=== PATIENT | male | born 1955 | race Caucasian/White ===

== ENCOUNTER 2017-02-17 14:53 | Outpatient (CLI) | payer MEDICARE | END 2017-02-17 23:59 | DX: N18.3 Chronic kidney disease, stage 3 (moderate) (principal); I10 Essential (primary) hypertension; E78.5 Hyperlipidemia, unspecified; E11.9 Type 2 diabetes mellitus without complications ==

== ENCOUNTER 2017-03-16 08:00 | Outpatient (CLI) | payer MEDICARE ==
[2017-03-16 18:57] LABS: BASOPHILS % (AUTO) 0.8 %; EOSINOPHILS # (AUTO) 0.1 10^3/uL (0.0-0.7); HCT - HEMATOCRIT 27.5 % (42.0-52.0); HGB - HEMOGLOBIN 8.9 g/dL (14.0-18.0); IMMATURE RETIC FRACTION 0.47; LYMPHOCYTES # (AUTO) 0.5 10^3/uL (1.5-3.5); LYMPHOCYTES % (AUTO) 13.1 %; MEAN CORPUSCULAR HEMOGLOBIN 29.5 pg (27.0-31.0); MEAN CORPUSCULAR HGB CONC 32.4 g/dL (32.0-36.0); MEAN CORPUSCULAR VOLUME 90.9 fL (80.0-94.0); MEAN PLATELET VOLUME 7.7 fL (7.4-11.4); MONOCYTES # (AUTO) 0.3 10^3/uL (0.0-1.0); MONOCYTES % (AUTO) 7.6 %; NEUTROPHILS # (AUTO) 3.2 10^3/uL (1.5-6.6); NEUTROPHILS % (AUTO) 76.5 %; NUCLEATED RED BLOOD CELLS AUTO 0.1 /100WBC; RED BLOOD COUNT 3.02 10^6/uL (4.70-6.10); RED CELL DISTRIBUTION WIDTH 13.9 % (12.0-15.0); UNCORRECTED WHITE BLOOD COUNT 4.2 x10^3/uL; WHITE BLOOD COUNT 4.2 x10^3/uL (4.8-10.8)
[2017-03-16 19:07] LABS: BILIRUBIN,TOTAL 0.5 mg/dL (0.2-1.0); CREATININE 5.7 mg/dL (0.6-1.2); POTASSIUM 5.3 mmol/L (3.5-5.0); TOTAL PROTEIN 6.9 g/dL (6.7-8.2)
[2017-03-16 19:15] LABS: HEMOGLOBIN A1C 0.31 g/dL
== END 2017-03-16 08:01 | disposition home or self-care (01) ==
LOC: LAB.N 08:00
PROVIDERS: ATTEND Family Medicine
DX: E11.22 Type 2 diabetes mellitus with diabetic chronic kidney disease (principal); N18.6 End stage renal disease; I12.0 Hypertensive chronic kidney disease with stage 5 chronic kidney disease or end stage renal disease; Z99.2 Dependence on renal dialysis
CPT/HCPCS: 36415; 80053; 83036; 85025; 85044; 93005

== ENCOUNTER 2017-03-16 13:30 | Outpatient (CLI) | payer MEDICARE | END 2017-03-16 13:45 | disposition home or self-care (01) | DX: I12.9 Hypertensive chronic kidney disease with stage 1 through stage 4 chronic kidney disease, or unspecified chronic kidney disease (principal); N18.6 End stage renal disease ==

== ENCOUNTER 2017-04-06 09:15 | Outpatient (CLI) | payer MEDICARE | END 2017-04-06 09:30 | disposition home or self-care (01) | LOC: RT.N 09:15 | PROVIDERS: ATTEND Family Medicine | DX: Z01.810 Encounter for preprocedural cardiovascular examination (principal); R94.31 Abnormal electrocardiogram [ECG] [EKG] | CPT/HCPCS: 93005 ==

== ENCOUNTER 2017-04-12 08:26 | Outpatient (CLI) | payer MEDICARE | END 2017-04-12 08:27 | disposition home or self-care (01) | LOC: EMS 08:26 | PROVIDERS: ATTEND Surgery | DX: R53.1 Weakness (principal) | CPT/HCPCS: A0425; A0429 ==

== ENCOUNTER 2017-04-12 08:46 | Emergency (ER) | payer MEDICARE ==
--- NOTE | 2017-04-12 09:12 | ED Physician Documentation ---
PD HPI FOCAL NEURO - Stated complaint Stated Complaint: POSS STROKE - Chief complaint Chief Complaint: Neuro - History obtained from History obtained from: Patient, Family (parents), EMS - History of Present Illness Timing - onset: How many hours ago (11), Last night Timing - details: Other (Improving since onset last night.) Severity of deficit: Moderate Weakness: Face, Arm, Leg, Left Associated symptoms: No: Headache, Nausea / vomiting, Fall, Head injury, Chest pain, Fever Baseline status: positive: A&OX3, ambulatory, indep Similar symptoms before: Diagnosis (History of TIA in 2007, with transient left sided weakness.) - Additional information Additional information: The patient is a 62-year-old male with history of renal failure, on dialysis, and history of TIA with left-sided weakness in 2007, who presents via ambulance with acute left-sided weakness that was first noticed last night, about 11 hours prior to arrival. At that time the patient was unable to walk because of weakness in his left leg. He also reports inability to raise his left arm at that time. This morning he told his parents, and they advised him to call 911. He feels better this morning, with ability to bear weight on his left leg. He denies headache, fever, nausea or vomiting. He is scheduled for dialysis today. Review of Systems Constitutional: denies: Fever Eyes: denies: Decreased vision Ears: denies: Tinnitus/ringing Nose: denies: Congestion Throat: denies: Sore throat Cardiac: denies: Chest pain / pressure, Palpitations Respiratory: denies: Dyspnea, Cough GI: denies: Abdominal Pain, Nausea, Vomiting : denies: Dysuria Skin: denies: Rash Musculoskeletal: denies: Neck pain, Back pain, Extremity swelling Neurologic: reports: Focal weakness (left-sided weakness). denies: Numbness, Headache PD PAST MEDICAL HISTORY - Past Medical History Past Medical History: Yes Cardiovascular: Hypertension Neuro: TIA Endocrine/Autoimmune: Type 2 diabetes : Dialysis - Past Surgical History Past Surgical History: Yes Ortho: Hip replacement - Present Medications Home Medications: Ambulatory Orders Medication Instructions Recorded Confirmed Losartan [Cozaar] 1 tab PO DAILY 04/12/17 04/12/17 Metoprolol Succinate 1 tab PO DAILY 04/12/17 04/12/17 Rosuvastatin Calcium 1 tab PO DAILY 04/12/17 04/12/17 Terazosin HCl 1 cap PO DAILY 04/12/17 04/12/17 - Allergies Allergies/Adverse Reactions: Allergies Allergy/AdvReac Type Severity Reaction Status Date / Time lisinopril AdvReac Unknown Verified 04/12/17 08:55 bee stings AdvReac Unknown Edema Uncoded 04/12/17 08:55 - Living Situation Living Situation: reports: With family Living Arrangement: reports: At home - Social History Does the pt smoke?: Yes Smoking Status: Current every day smoker Does the pt drink ETOH?: No Does the pt have substance abuse?: No - Immunizations Immunizations are current?: Yes - POLST Patient has POLST: No PD ED PE NORMAL - Vitals Vital signs reviewed: Yes (hypertensive) - General General: Alert and oriented X 3, Well developed/nourished - HEENT HEENT: Atraumatic, PERRL, EOMI, Pharynx benign - Neck Neck: Supple, no meningeal sign, No adenopathy, No JVD - Cardiac Cardiac: RRR, No murmur - Respiratory Respiratory: No respiratory distress, Clear bilaterally - Abdomen Abdomen: Soft, Non tender - Back Back: No CVA TTP - Derm Derm: No rash - Extremities Extremities: No edema, No calf tenderness / cord - Neuro Neuro: Alert and oriented X 3, No sensory deficit, Normal speech, Other (Mild left facial droop. No focal motor or sensory deficit detected in the extremities.) NIHSS - Time Time: 08:55 - Level of Consciousness Level of consciousness: (0) Alert, Keenly responsive LOC Questions: (0) Answers both Q's correct LOC Commands: (0) Performs both correctly - Gaze Best Gaze: (0) Normal - Visual Visual: (0) No loss - Facial Palsy Facial Palsy: (1) Minor paralysis - Motor Arms (both separate) Motor Arm (right): (0) No drift Motor Arm (left): (0) No drift - Motor Legs (both separate) Motor Leg (right): (0) No drift Motor Leg (left): (0) No drift - Limb Ataxia Limb Ataxia: (0) Absent - Sensory Sensory: (0) Normal - Best Language Best Language: (0) No aphasia - Dysarthria Dysarthria: (0) Normal - Extinction and Inattention (formally neg Extinction and inattention: (0) No abnormality - Total Score/Results Total Score/Result: 1 Results - Vitals Vitals: Vital Signs - 24 hr 04/12/17 04/12/17 04/12/17 12:28 12:38 14:04 Heart Rate 53 L 60 51 L Respiratory 14 15 12 Rate Blood Pressure 168/85 H 179/96 H 181/83 H O2 Saturation 99 99 97 04/12/17 15:25 Heart Rate 54 L Respiratory 14 Rate Blood Pressure 173/84 H O2 Saturation 98 Oxygen O2 Source Room air - EKG (time done) 08:55 Rate: Rate (enter#) (60) Rhythm: NSR [place]: Normal Intervals: Prolonged DC QRS: Normal Ischemia: T wave inversion (T wave inversions in lateral leads, I, aVL, and V3- V6, unchanged from previous EKG of 03/16/2017.) Compare to prior EKG: Unchanged from prior EKG Computer interpretation: Agree with computer - Labs Labs: Laboratory Tests 04/12/17 04/12/17 09:14 09:14 WBC 6.4 RBC 3.28 L Hgb 9.9 L Hct 29.8 L MCV 91.1 MCH 30.2 MCHC 33.2 RDW 14.7 Plt Count 117 L MPV 6.9 L Neut # 4.7 Lymph # 0.9 L [place] # 0.5 Eos # 0.2 Baso # 0.0 Absolute Nucleated RBC 0.00 Nucleated RBCs 0.0 Sodium 140 Potassium 6.3 H* Chloride 108 Carbon Dioxide 20 L Anion Gap 12.0 BUN 93 H* Creatinine 9.1 H* Estimated GFR (MDRD) 6 L Glucose 109 H Calcium 9.1 Total Bilirubin 0.5 AST 14 ALT 14 Alkaline Phosphatase 64 Total Protein 6.9 Albumin 3.7 Globulin 3.2 Albumin/Globulin Ratio 1.2 Lipase 91 H - Rads (name of study) CT head Radiology: Prelim report reviewed, EMP read contemporaneously, See rad report ( No CT evidence of acute intracranial abnormality, specifically no CT evidence of acute infarct, intracranial hemorrhage, mass effect, midline shift, or hydrocephalus. Acute infarct is not excluded by CT. Scattered periventricular and deep white matter hypodensities within the cerebral hemispheres bilaterally , likely representing sequelae of chronic microangiopathy.) PD MEDICAL DECISION MAKING - ED course Complexity details: reviewed old records, reviewed results, re-evaluated patient , considered differential, d/w patient, d/w family, d/w resourcing consultant ED course: The patient's presentation is significant for left-sided neurologic deficit consistent with stroke versus TIA. The time of arrival is 11 hours since the onset of his symptoms, and they are dramatically improved since initial onset. Head CT does not reveal any acute abnormality. In addition the patient has a history of dialysis and is scheduled for dialysis today. His potassium is significantly elevated at 6.3, with a creatinine of 9.1, which is higher than it has been in the past on review of previous lab studies. Treatment in the emergency included administration of 4 baby aspirin orally, calcium gluconate IV, one amp sodium bicarbonate IV, 10 units regular insulin, and 1 amp of D50W IV. I discussed his condition with Dr. Dominguez, his elevated work platform operator at [facility]. He would accept the patient in transfer but [facility] is on diversion. I discussed his condition with Dr. Miner, the hospitalist at [facility], as well as Dr. Slaughter, the elevated work platform operator at [facility]. They will accept the patient in transfer. He is being transferred by ALS ambulance. Transfer forms were completed. Departure - Departure Disposition: 02 Transfer Acute Care Hosp Clinical Impression: Hyperkalemia, Renal dialysis status Cerebrovascular accident (CVA) Qualifiers: CVA mechanism: unspecified Qualified Code(s): I63.9 - Cerebral infarction, unspecified Condition: Serious Discharge Date/Time: 04/12/17 15:41
[2017-04-12 09:38] LABS: BASOPHILS % (AUTO) 0.4 %; EOSINOPHILS # (AUTO) 0.2 10^3/uL (0.0-0.7); EOSINOPHILS % (AUTO) 3.5 %; HCT - HEMATOCRIT 29.8 % (42.0-52.0); HGB - HEMOGLOBIN 9.9 g/dL (14.0-18.0); LYMPHOCYTES # (AUTO) 0.9 10^3/uL (1.5-3.5); LYMPHOCYTES % (AUTO) 14.3 %; MEAN CORPUSCULAR HEMOGLOBIN 30.2 pg (27.0-31.0); MEAN CORPUSCULAR HGB CONC 33.2 g/dL (32.0-36.0); MEAN CORPUSCULAR VOLUME 91.1 fL (80.0-94.0); MEAN PLATELET VOLUME 6.9 fL (7.4-11.4); MONOCYTES # (AUTO) 0.5 10^3/uL (0.0-1.0); MONOCYTES % (AUTO) 8.1 %; NEUTROPHILS # (AUTO) 4.7 10^3/uL (1.5-6.6); NEUTROPHILS % (AUTO) 73.7 %; RED BLOOD COUNT 3.28 10^6/uL (4.70-6.10); RED CELL DISTRIBUTION WIDTH 14.7 % (12.0-15.0); UNCORRECTED WHITE BLOOD COUNT 6.4 x10^3/uL; WHITE BLOOD COUNT 6.4 x10^3/uL (4.8-10.8)
[2017-04-12 10:05] LABS: ALBUMIN/GLOBULIN RATIO 1.2 (1.0-2.2); BILIRUBIN,TOTAL 0.5 mg/dL (0.2-1.0); CALCIUM 9.1 mg/dL (8.5-10.3); TOTAL PROTEIN 6.9 g/dL (6.7-8.2)
[2017-04-12 10:06] LABS: POTASSIUM 6.3 mmol/L (3.5-5.0)
[2017-04-12 10:07] LABS: CREATININE 9.1 mg/dL (0.6-1.2)
--- NOTE | 2017-04-12 10:29 | CT Report ---
EXAM: CT HEAD EXAM DATE: 04/12/2017 09:48 AM. CLINICAL HISTORY: Left sided weakness. COMPARISON: MRI brain 07/26/2008 TECHNIQUE: Multiaxial CT images were obtained from the foramen magnum to the vertex. IV contrast: Non e. Reformats: Coronal. In accordance with CT protocol optimization, one or more of the following dose reduction techniques w ere utilized for this exam: automated exposure control, adjustment of mA and/or KV based on patient s ize, or use of iterative reconstructive technique. FINDINGS: Parenchyma: No intraparenchymal hemorrhage. No evidence of mass, midline shift, or CT findings of inf arction. Scattered periventricular and deep white matter hypodensities within the cerebral hemisphere s bilaterally, likely representing sequela of chronic microangiopathy. Rubio-white differentiation is otherwise distinct. Extraaxial Spaces: Normal for age. No subdural or epidural collections identified. Ventricles: Normal in size and position. Sinuses: Imaged paranasal sinuses, orbits, and mastoids show no significant abnormality. Bones: No evidence of fracture or calvarial defect. Other: None. Extensive atherosclerosis intracranial arteries. IMPRESSION: 1. No CT evidence of acute intracranial abnormality, specifically no CT evidence of acute infarct, in tracranial hemorrhage, mass effect, midline shift, or hydrocephalus. Acute infarct is not excluded b y CT. 2. Scattered periventricular and deep white matter hypodensities within the cerebral hemispheres bila terally, likely representing sequela of chronic microangiopathy. [facility] Referring Provider Line: [phone] SITE ID: [id number]
[2017-04-12] MEDS ORDERED: CALCIUM GLUCONATE 1,000 MG in SODIUM CHLORIDE 0.9% 50 ML IV ONE (11:50)
[2017-04-12] MEDS ORDERED: SODIUM BICARBONATE ABBOJECT 4.2% 5 MEQ/10 ML SYRINGE IVP STA (11:52)
[2017-04-12] MEDS ORDERED: INSULIN REGULAR HUMAN 100 UNIT/1 ML 10 ML MDV IVP STA (11:54)
[2017-04-12] MEDS ORDERED: DEXTROSE 5% 1,000 ML IV SCH (12:00)
[2017-04-12] MEDS ORDERED: DEXTROSE 50% ABBOJECT 25 GM/50 ML SYRINGE IVP STA ×2 (12:15→14:58)
[2017-04-12] MEDS ORDERED: SODIUM BICARBONATE ABBOJECT 50 MEQ/50 ML SYRINGE ONE ×2 (12:42→12:44)
[2017-04-12] MEDS ORDERED: DEXTROSE 50% ABBOJECT 25 GM/50 ML SYRINGE ONE ×2 (12:42→14:59)
[2017-04-12] MEDS ORDERED: INSULIN REGULAR HUMAN 100 UNIT/1 ML 10 ML MDV ONE (12:44)
[2017-04-12 15:27] VITALS: BP 173/84
== END 2017-04-12 15:41 | disposition short-term general hospital (02) ==
LOC: EDUNIT# → ED 08:46
DX: I63.9 Cerebral infarction, unspecified (principal); G81.94 Hemiplegia, unspecified affecting left nondominant side; E11.22 Type 2 diabetes mellitus with diabetic chronic kidney disease; N18.6 End stage renal disease; Z99.2 Dependence on renal dialysis; I10 Essential (primary) hypertension; F17.200 Nicotine dependence, unspecified, uncomplicated; E87.5 Hyperkalemia
CPT/HCPCS: 36415; 70450; 80053; 83690; 85025; 93005; 96374; 99285; J1815; J7040

== ENCOUNTER 2017-04-12 15:40 | Outpatient (CLI) | payer MEDICARE | END 2017-04-12 15:41 | disposition critical access hospital (66) | LOC: EMS 15:40 | PROVIDERS: ATTEND Surgery | DX: I63.8 Other cerebral infarction (principal) | CPT/HCPCS: A0425; A0426 ==

== ENCOUNTER 2017-05-17 08:00 | Outpatient (CLI) | payer MEDICARE ==
[2017-05-17 19:46] LABS: IMMATURE RETIC FRACTION 0.39; RED BLOOD COUNT 3.56 10^6/uL (4.70-6.10)
[2017-05-17 19:51] LABS: CALCIUM 8.5 mg/dL (8.5-10.3); POTASSIUM 3.9 mmol/L (3.5-5.0)
== END 2017-05-17 08:01 | disposition home or self-care (01) ==
LOC: LAB.N 08:00
PROVIDERS: ATTEND Physician Assistant
DX: I12.9 Hypertensive chronic kidney disease with stage 1 through stage 4 chronic kidney disease, or unspecified chronic kidney disease (principal); N18.3 Chronic kidney disease, stage 3 (moderate); E11.9 Type 2 diabetes mellitus without complications; E78.5 Hyperlipidemia, unspecified
CPT/HCPCS: 36415; 80048; 85044

== ENCOUNTER 2017-07-24 20:29 | Emergency (ER) | payer MEDICARE, MEDICAID ==
[2017-07-24 21:22] LABS: BASOPHILS % (AUTO) 0.4 %; EOSINOPHILS # (AUTO) 0.1 10^3/uL (0.0-0.7); EOSINOPHILS % (AUTO) 1.4 %; HCT - HEMATOCRIT 37.3 % (42.0-52.0); HGB - HEMOGLOBIN 12.2 g/dL (14.0-18.0); LYMPHOCYTES # (AUTO) 0.5 10^3/uL (1.5-3.5); LYMPHOCYTES % (AUTO) 10.2 %; MEAN CORPUSCULAR HEMOGLOBIN 29.7 pg (27.0-31.0); MEAN CORPUSCULAR HGB CONC 32.7 g/dL (32.0-36.0); MEAN CORPUSCULAR VOLUME 90.8 fL (80.0-94.0); MEAN PLATELET VOLUME 6.7 fL (7.4-11.4); MONOCYTES # (AUTO) 0.2 10^3/uL (0.0-1.0); MONOCYTES % (AUTO) 4.8 %; NEUTROPHILS # (AUTO) 4.3 10^3/uL (1.5-6.6); NEUTROPHILS % (AUTO) 83.2 %; RED BLOOD COUNT 4.11 10^6/uL (4.70-6.10); RED CELL DISTRIBUTION WIDTH 15.5 % (12.0-15.0); UNCORRECTED WHITE BLOOD COUNT 5.2 x10^3/uL; WHITE BLOOD COUNT 5.2 x10^3/uL (4.8-10.8)
[2017-07-24 21:29] LABS: ALBUMIN/GLOBULIN RATIO 0.9 (1.0-2.2); BILIRUBIN,TOTAL 0.9 mg/dL (0.2-1.0); CALCIUM 9.6 mg/dL (8.5-10.3); CREATININE 6.4 mg/dL (0.6-1.2); MAGNESIUM 2.3 mg/dL (1.7-2.8); PHOSPHORUS 4.5 mg/dL (2.5-4.6); POTASSIUM 4.9 mmol/L (3.5-5.0); TOTAL PROTEIN 7.6 g/dL (6.7-8.2)
--- NOTE | 2017-07-24 21:34 | ED Physician Documentation ---
PD HPI ABD PAIN - Stated complaint Stated Complaint: ABD PX - Chief complaint Chief Complaint: Abd Pain - History obtained from History obtained from: Patient - History of Present Illness Timing - onset: Yesterday Timing - details: Gradual onset, Still present Quality: Aching, Indigestion Location: All over / everywhere Worsened by: Eating, Position Associated symptoms: No: Fever, Nausea, Vomiting, Diarrhea, Constipation Similar symptoms before: No diagnosis Recently seen: Not recently seen - Additional information Additional information: Patient is a 62 year old male with a history of diabetes who is presenting to the emergency department for abdominal pain and nausea. Patient states that the pain started yesterday. He reports that it more uncomfortable than it is pain. It is all over and cannot pin-point a location. Patient states that he feels full even though he has not eaten anything today. patient denies vomiting , fever or chills. Review of Systems Constitutional: denies: Fever, Chills Eyes: denies: Decreased vision, Photophobia Ears: denies: Ear pain Throat: denies: Dental pain / toothache, Sore throat Cardiac: denies: Chest pain / pressure, Palpitations Respiratory: denies: Dyspnea, Cough, Wheezing GI: reports: Abdominal Pain, Nausea. denies: Abdominal Swelling, Vomiting, Constipation, Diarrhea : denies: Dysuria, Frequency, Hesitancy Skin: denies: Rash, Lesions Musculoskeletal: denies: Extremity pain, Extremity swelling, Joint swelling Neurologic: denies: Generalized weakness, Focal weakness, Numbness PD PAST MEDICAL HISTORY - Past Medical History Cardiovascular: Hypertension Neuro: TIA Endocrine/Autoimmune: Type 2 diabetes : Dialysis - Past Surgical History Past Surgical History: Yes Ortho: Hip replacement - Present Medications Home Medications: Ambulatory Orders Medication Instructions Recorded Confirmed Metoprolol Succinate 0.5 tab PO DAILY 04/12/17 07/24/17 Rosuvastatin Calcium 1 tab PO DAILY 04/12/17 07/24/17 Terazosin HCl 1 cap PO DAILY 04/12/17 07/24/17 Aspirin Chewable [[place] 81 mg PO DAILY 07/24/17 07/24/17 Aspirin] Ondansetron Odt [Zofran] 4 mg TL Q6H PRN #14 tablet 07/24/17 Pantoprazole [Protonix] 40 mg PO DAILY 07/24/17 07/24/17 Sevelamer Carbonate [Renvela] 1,600 mg PO BID 07/24/17 07/24/17 - Allergies Allergies/Adverse Reactions: Allergies Allergy/AdvReac Type Severity Reaction Status Date / Time lisinopril AdvReac Unknown Verified 04/12/17 08:55 bee stings AdvReac Unknown Edema Uncoded 04/12/17 08:55 - Social History Does the pt smoke?: Yes Smoking Status: Current every day smoker Does the pt drink ETOH?: No Does the pt have substance abuse?: No - Immunizations Immunizations are current?: Yes - POLST Patient has POLST: No PD ED PE NORMAL - Vitals Vital signs reviewed: Yes - General General: Alert and oriented X 3, No acute distress - HEENT HEENT: Atraumatic, PERRL - Neck Neck: Supple, no meningeal sign, No JVD - Cardiac Cardiac: RRR, No murmur - Respiratory Respiratory: No respiratory distress, Clear bilaterally - Abdomen Abdomen: Soft, Non distended - Derm Derm: Normal color, Warm and dry, No rash - Extremities Extremities: No deformity, Normal ROM s pain, No edema - Neuro Neuro: Alert and oriented X 3, No motor deficit, No sensory deficit, Normal speech - Psych Psych: Normal mood, Normal affect PD ED PE EXPANDED - Abdomen Abdomen: Tender to palpation, Generalized/diffuse. No: Distended, Rebound, Guarding Results - Vitals Vitals: Vital Signs - 24 hr 07/24/17 07/24/17 20:39 23:50 Temperature 36.7 C Heart Rate 87 77 Respiratory 81 H 16 Rate Blood Pressure 188/94 H 177/80 H O2 Saturation 97 100 Oxygen O2 Source Room air - Labs Labs: Laboratory Tests 07/24/17 07/24/17 07/24/17 21:06 21:06 21:06 WBC 5.2 RBC 4.11 L Hgb 12.2 L Hct 37.3 L MCV 90.8 MCH 29.7 MCHC 32.7 RDW 15.5 H Plt Count 172 MPV 6.7 L Neut # 4.3 Lymph # 0.5 L [place] # 0.2 Eos # 0.1 Baso # 0.0 Absolute Nucleated RBC 0.00 Nucleated RBC % 0.0 Sodium 139 Potassium 4.9 Chloride 107 Carbon Dioxide 23 Anion Gap 9.0 BUN 43 H Creatinine 6.4 H Estimated GFR (MDRD) 9 L Glucose 100 Calcium 9.6 Phosphorus 4.5 Magnesium 2.3 Total Bilirubin 0.9 AST 12 ALT 10 Alkaline Phosphatase 65 B-Natriuretic Peptide 1474 H Total Protein 7.6 Albumin 3.7 Globulin 3.9 Albumin/Globulin Ratio 0.9 L Lipase 17 L Urine Color Urine Clarity Urine pH Ur Specific [place] Urine Protein Urine Glucose (UA) Urine Ketones Urine Occult Blood Urine Nitrite Urine Bilirubin Urine Urobilinogen Ur Leukocyte Esterase Urine RBC Urine WBC Ur Squamous Epith Cells Urine Bacteria Ur Microscopic Review Urine Culture Comments 07/24/17 22:54 WBC RBC Hgb Hct MCV MCH MCHC RDW Plt Count MPV Neut # Lymph # [place] # Eos # Baso # Absolute Nucleated RBC Nucleated RBC % Sodium Potassium Chloride Carbon Dioxide Anion Gap BUN Creatinine Estimated GFR (MDRD) Glucose Calcium Phosphorus Magnesium Total Bilirubin AST ALT Alkaline Phosphatase B-Natriuretic Peptide Total Protein Albumin Globulin Albumin/Globulin Ratio Lipase Urine Color YELLOW Urine Clarity CLEAR Urine pH 8.0 H Ur Specific [place] 1.020 Urine Protein 100 H Urine Glucose (UA) 100 H Urine Ketones NEGATIVE Urine Occult Blood SMALL H Urine Nitrite NEGATIVE Urine Bilirubin NEGATIVE Urine Urobilinogen 0.2 (NORMAL) Ur Leukocyte Esterase NEGATIVE Urine RBC 0-5 Urine WBC 0-3 Ur Squamous Epith Cells NONE SEEN Urine Bacteria None Seen Ur Microscopic Review INDICATED Urine Culture Comments NOT INDICATED - Rads (name of study) ct abd/pelvis Radiology: Final report received (no acute abnormality) PD MEDICAL DECISION MAKING - ED course Complexity details: reviewed old records, reviewed results, re-evaluated patient , considered differential, d/w patient, d/w family ED course: Patient was seen and examined at bedside. labs were drawn and imaging was ordered. Patient's blood work was within normal limits for the patient. Patient's imaging was unremarkable, as was his abdominal exam. Patient's urine showed no sign of infection. While the exact etiology is unknown it is unlikely to be life threatening in nature. Patient and family were made aware of the findings and comfortable with the discharge and follow up plans. Patient required no further work up and was stable for discharge home and outpatient follow up. Departure - Departure Disposition: Home, Self Care Clinical Impression: Abdominal pain Condition: Good Instructions: ED Abdominal Pain Unkn Cause Follow-Up: Marko Kwong MD [Primary Care Provider] - Within 1 week Prescriptions: Ondansetron Odt [Zofran] 4 mg TL Q6H PRN #14 tablet PRN Reason: Nausea / Vomiting Comments: Your diagnostics today were within normal limits. It is difficult to say what is exactly causing your pain, but it is unlikely to be infectious or surgical in nature. You should take tylenol as needed for pain, as well as over the counter indigestion medications. You can take the zofran as needed for nausea. You should follow up with your pmd if your symptoms persist. You may return to the emergency department at any time for new, worsening or uncontrollable symptoms. Discharge Date/Time: 07/24/17 23:51
--- NOTE | 2017-07-24 22:07 | CT Preliminary Report ---
Exam: CT Abdomen/Pelvis W/O IMPRESSION: Negative noncontrast CT of the abdomen and pelvis. SITE ID: [id number]
--- NOTE | 2017-07-24 22:10 | CT Report ---
EXAM: CT ABDOMEN AND PELVIS EXAM DATE: 07/24/2017 09:46 PM. CLINICAL HISTORY: On dialysis, diffuse abdominal pain. COMPARISONS: None. TECHNIQUE: Routine axial helical CT imaging was performed through the abdomen and pelvis without IV c ontrast. Reconstructions: Coronal and sagittal. In accordance with CT protocol optimization, one or more of the following dose reduction techniques w ere utilized for this exam: automated exposure control, adjustment of mA and/or KV based on patient s ize, or use of iterative reconstructive technique. FINDINGS: Lung Bases: Unremarkable. Abdominal Organs: The liver and spleen demonstrate no acute abnormalities. The pancreas is unremarkab le. There is bilateral perinephric stranding. No stones or hydronephrosis. The adrenal glands are unr emarkable. Gallbladder/bile ducts: There is cholelithiasis. No evidence of bile duct dilatation. Peritoneal Cavity: No dilated or thick-walled bowel is seen. The appendix is normal. There may be a s mall amount of free fluid within the pelvis. No intraperitoneal free air. No enlarged mesenteric or r etroperitoneal lymph nodes. Pelvic Organs: Detail is somewhat limited by streak artifact from left hip arthroplasty hardware. No significant abnormalities are seen. Vasculature: There are vascular calcifications. Other: None. IMPRESSION: Negative noncontrast CT of the abdomen and pelvis. Referring Provider Line: [phone] SITE ID: [id number]
[2017-07-24 23:07] LABS: BILIRUBIN,URINE NEGATIVE (NEGATIVE)
[2017-07-24 23:25] LABS: UA w/ MICROSCOPIC CHARGE YES
[2017-07-24 23:27] LABS: UR CULTURE IF IND NOT INDICATED; WBC,URINE 0-3 /HPF (0-3)
[2017-07-24 23:50] VITALS: BP 177/80
== END 2017-07-24 23:51 | disposition home or self-care (01) ==
LOC: ED 20:29
DX: R10.84 Generalized abdominal pain (principal); R11.0 Nausea; I10 Essential (primary) hypertension; E11.9 Type 2 diabetes mellitus without complications; Z86.73 Personal history of transient ischemic attack (TIA), and cerebral infarction without residual deficits; Z79.82 Long term (current) use of aspirin; F17.200 Nicotine dependence, unspecified, uncomplicated
CPT/HCPCS: 36415; 74176; 80053; 81001; 81003; 83690; 83735; 83880; 84100; 85025; 87086; 99283; 99284

== ENCOUNTER 2017-09-30 15:30 | Outpatient (CLI) | payer MEDICARE, MEDICAID ==
--- NOTE | 2017-10-01 20:58 | XRAY Report ---
EXAM: LEFT HIP AND PELVIS RADIOGRAPHY EXAM DATE: 09/30/2017 03:59 PM. HISTORY: Pain in left hip. COMPARISONS: 11/08/2008 radiograph, 07/24/2017 CT pelvis. TECHNIQUE: 1 view of the pelvis and 1 view of the hip. FINDINGS: Bones: Mild osteopenia is present. The patient has a noncemented left hip arthroplasty. The appearanc e of erosion at the upper margin of the lesser trochanter is similar to the prior CT. The lucent area s within the left acetabulum were present preoperatively and likely represent cysts. Joints: The right hip joint demonstrates severe osteophyte formation and mild joint space narrowing. Soft Tissues: Buttock granulomas are present. Heterotopic ossification is around the left hip joint. Arterial calcifications indicate atherosclerosis. IMPRESSION: Unchanged appearance of left hip arthroplasty. [facility] Referring Provider Line: [phone] SITE ID: [id number]
== END 2017-09-30 15:31 | disposition home or self-care (01) ==
LOC: DI.N 15:30
PROVIDERS: ATTEND Family Medicine
DX: M25.552 Pain in left hip (principal); Z96.642 Presence of left artificial hip joint

== ENCOUNTER 2017-10-26 13:36 | Outpatient (CLI) | payer MEDICARE, MEDICAID ==
[2017-10-26 19:00] LABS: BASOPHILS % (AUTO) 0.5 %; EOSINOPHILS # (AUTO) 0.2 10^3/uL (0.0-0.7); HGB - HEMOGLOBIN 11.8 g/dL (14.0-18.0); LYMPHOCYTES # (AUTO) 0.9 10^3/uL (1.5-3.5); LYMPHOCYTES % (AUTO) 17.3 %; MEAN CORPUSCULAR HEMOGLOBIN 28.8 pg (27.0-31.0); MEAN CORPUSCULAR HGB CONC 31.6 g/dL (32.0-36.0); MEAN PLATELET VOLUME 7.9 fL (7.4-11.4); MONOCYTES # (AUTO) 0.4 10^3/uL (0.0-1.0); NEUTROPHILS # (AUTO) 3.7 10^3/uL (1.5-6.6); NEUTROPHILS % (AUTO) 70.2 %; PLT - PLATELET COUNT 131 10^3/uL (130-450); RED BLOOD COUNT 4.11 10^6/uL (4.70-6.10); RED CELL DISTRIBUTION WIDTH 15.4 % (12.0-15.0); WHITE BLOOD COUNT 5.3 x10^3/uL (4.8-10.8)
[2017-10-26 19:52] LABS: ALBUMIN 3.9 g/dL (3.2-5.5); ALBUMIN/GLOBULIN RATIO 1.2 (1.0-2.2); ALKALINE PHOSPHATASE 68 IU/L (42-121); ALT ALANINE AMINOTRANSFERASE < 10 IU/L (10-60); AST ASPARTATE AMINOTRANSFERASE 11 IU/L (10-42); BILIRUBIN,TOTAL 0.4 mg/dL (0.2-1.0); BUN - BLOOD UREA NITROGEN 56 mg/dL (6-20); CARBON DIOXIDE - CO2 22 mmol/L (21-32); CHLORIDE 106 mmol/L (101-111); CHOL/HDL RATIO 3.2 (<5.0); CHOLESTEROL 101 mg/dL; GFR - MDRD 8 (>89); GLUCOSE 97 mg/dL (70-100); HDL CHOLESTEROL 32 mg/dL; LDL CHOLESTEROL,CALCULATED 53 mg/dL; LDL/HDL RATIO 1.7 (<3.6); SODIUM 141 mmol/L (135-145); TOTAL PROTEIN 7.2 g/dL (6.7-8.2); VLDL CHOLESTEROL 16 mg/dL
[2017-10-26 19:53] LABS: CREATININE 7.3 mg/dL (0.6-1.2)
== END 2017-10-26 13:37 ==
LOC: LAB.N 13:36
PROVIDERS: ATTEND Family Medicine
DX: R19.5 Other fecal abnormalities (principal); E11.9 Type 2 diabetes mellitus without complications; E78.5 Hyperlipidemia, unspecified
CPT/HCPCS: 36415; 80053; 80061; 85025

== ENCOUNTER 2017-12-09 08:46 | Day surgery (SDC) | payer MEDICARE, MEDICAID | END 2017-12-09 08:47 | disposition home or self-care (01) | LOC: SDS 08:46 | PROVIDERS: ATTEND Surgery | DX: Z53.9 Procedure and treatment not carried out, unspecified reason (principal) ==

== ENCOUNTER 2017-12-30 14:58 | Outpatient (CLI) | payer MEDICARE, MEDICAID | END 2017-12-30 14:59 | disposition EMS.NT | LOC: EMS 14:58 | PROVIDERS: ATTEND Surgery | DX: M25.552 Pain in left hip (principal); R63.0 Anorexia ==

== ENCOUNTER 2018-02-04 12:32 | Outpatient (CLI) | payer MEDICARE, MEDICAID | END 2018-02-04 12:33 | disposition short-term general hospital (02) | LOC: EMS 12:32 | PROVIDERS: ATTEND Surgery | DX: R46.4 Slowness and poor responsiveness (principal) | CPT/HCPCS: A0425; A0427; A0888 ==

== ENCOUNTER 2018-03-02 16:43 | Outpatient (CLI) | payer MEDICARE, MEDICAID | END 2018-03-02 16:44 | disposition home or self-care (01) | LOC: RT 16:43 | PROVIDERS: ATTEND Surgery | DX: I49.9 Cardiac arrhythmia, unspecified (principal) | CPT/HCPCS: 93005 ==

== ENCOUNTER 2018-03-24 06:18 | Day surgery (SDC) | payer MEDICAID, MEDICARE ==
[2018-03-24] MEDS ORDERED: LACTATED RINGERS 1,000 ML IV ONE (06:57)
[2018-03-24] MEDS ORDERED: PROPOFOL 200 MG/20 ML VIAL IVP ONE (07:05)
[2018-03-24] MEDS ORDERED: KETAMINE 500 MG/10 ML VIAL IVP ONE (07:05)
[2018-03-24] MEDS ORDERED: GLYCOPYRROLATE 1 MG/5 ML VIAL IVP ONE (07:05)
[2018-03-24] MEDS ORDERED: MIDAZOLAM 2 MG/2 ML VIAL IVP ONE (07:05)
[2018-03-24 07:18] LABS: BASOPHILS % (AUTO) 0.6 %; EOSINOPHILS # (AUTO) 0.2 10^3/uL (0.0-0.7); HGB - HEMOGLOBIN 10.7 g/dL (14.0-18.0); LYMPHOCYTES # (AUTO) 0.7 10^3/uL (1.5-3.5); LYMPHOCYTES % (AUTO) 11.6 %; MEAN CORPUSCULAR HEMOGLOBIN 29.3 pg (27.0-31.0); MEAN CORPUSCULAR HGB CONC 33.2 g/dL (32.0-36.0); MEAN CORPUSCULAR VOLUME 88.3 fL (80.0-94.0); MEAN PLATELET VOLUME 7.7 fL (7.4-11.4); MONOCYTES # (AUTO) 0.4 10^3/uL (0.0-1.0); MONOCYTES % (AUTO) 7.2 %; NEUTROPHILS # (AUTO) 4.8 10^3/uL (1.5-6.6); NEUTROPHILS % (AUTO) 77.6 %; PLT - PLATELET COUNT 111 10^3/uL (130-450); RED BLOOD COUNT 3.63 10^6/uL (4.70-6.10); RED CELL DISTRIBUTION WIDTH 17.3 % (12.0-15.0); WHITE BLOOD COUNT 6.2 x10^3/uL (4.8-10.8)
[2018-03-24 07:21] LABS: CALCIUM 8.8 mg/dL (8.5-10.3); CREATININE 6.4 mg/dL (0.6-1.2)
[2018-03-24 09:20] VITALS: BP 161/92
== END 2018-03-24 06:19 | disposition home or self-care (01) ==
LOC: SDS 06:18
PROVIDERS: ATTEND Surgery
PROC: 0DBN8ZX Excision of Sigmoid Colon, Via Natural or Artificial Opening Endoscopic, Diagnostic (ICD-10-PCS; 2018-03-24)
PROC: 3E0H8GC Introduction of Other Therapeutic Substance into Lower GI, Via Natural or Artificial Opening Endoscopic (ICD-10-PCS; 2018-03-24)
PROC: 0DBK8ZX Excision of Ascending Colon, Via Natural or Artificial Opening Endoscopic, Diagnostic (ICD-10-PCS; principal; 2018-03-24 07:30)
DX: Z12.11 Encounter for screening for malignant neoplasm of colon (principal); D12.2 Benign neoplasm of ascending colon; D12.5 Benign neoplasm of sigmoid colon; I12.0 Hypertensive chronic kidney disease with stage 5 chronic kidney disease or end stage renal disease; E11.22 Type 2 diabetes mellitus with diabetic chronic kidney disease; N18.6 End stage renal disease; Z99.2 Dependence on renal dialysis; N40.0 Benign prostatic hyperplasia without lower urinary tract symptoms; E78.5 Hyperlipidemia, unspecified; M19.90 Unspecified osteoarthritis, unspecified site
CPT/HCPCS: 36415; 45381; 45385; 80048; 85025; J7120; 88305

== ENCOUNTER → 2018-05-03 | Outpatient (CLI) | payer MEDICARE | LOC: RT.N 09:44 | PROVIDERS: ATTEND Family Medicine | DX: Z01.810 Encounter for preprocedural cardiovascular examination (principal) | CPT/HCPCS: 93005 ==

== ENCOUNTER 2018-10-02 11:15 | Outpatient (CLI) | payer MEDICARE ==
[2018-10-02 13:29] LABS: HGB - HEMOGLOBIN 7.5 g/dL (14.0-18.0); MEAN CORPUSCULAR HEMOGLOBIN 26.9 pg (27.0-31.0); MEAN CORPUSCULAR HGB CONC 32.1 g/dL (32.0-36.0); MEAN CORPUSCULAR VOLUME 83.9 fL (80.0-94.0); MEAN PLATELET VOLUME 6.9 fL (7.4-11.4); RED BLOOD COUNT 2.78 10^6/uL (4.70-6.10); RED CELL DISTRIBUTION WIDTH 16.3 % (12.0-15.0); WHITE BLOOD COUNT 6.9 x10^3/uL (4.8-10.8)
== END 2018-10-02 23:59 | disposition home or self-care (01) ==
LOC: LAB.R 11:15
DX: R79.82 Elevated C-reactive protein (CRP) (principal); R68.3 Clubbing of fingers; R70.0 Elevated erythrocyte sedimentation rate
CPT/HCPCS: 85027; 85651; 86140

== ENCOUNTER 2018-10-09 08:00 | Outpatient (CLI) | payer MEDICARE ==
[2018-10-09 11:37] LABS: HGB - HEMOGLOBIN 8.5 g/dL (14.0-18.0); MEAN CORPUSCULAR HEMOGLOBIN 27.4 pg (27.0-31.0); MEAN CORPUSCULAR HGB CONC 31.8 g/dL (32.0-36.0); MEAN CORPUSCULAR VOLUME 86.2 fL (80.0-94.0); MEAN PLATELET VOLUME 7.4 fL (7.4-11.4); RED BLOOD COUNT 3.11 10^6/uL (4.70-6.10); RED CELL DISTRIBUTION WIDTH 17.5 % (12.0-15.0); WHITE BLOOD COUNT 5.6 x10^3/uL (4.8-10.8)
== END 2018-10-09 23:59 | disposition home or self-care (01) ==
LOC: LAB.R 08:00
DX: T84.52XA Infection and inflammatory reaction due to internal left hip prosthesis, initial encounter (principal)
CPT/HCPCS: 85027; 85651; 86140

== ENCOUNTER 2018-10-18 07:15 | Outpatient (CLI) | payer MEDICARE ==
[2018-10-18 15:02] LABS: BASOPHILS % (AUTO) 1.1 %; EOSINOPHILS # (AUTO) 0.1 10^3/uL (0.0-0.7); EOSINOPHILS % (AUTO) 4.4 %; HGB - HEMOGLOBIN 8.7 g/dL (14.0-18.0); LYMPHOCYTES # (AUTO) 0.4 10^3/uL (1.5-3.5); LYMPHOCYTES % (AUTO) 13.4 %; MEAN CORPUSCULAR HEMOGLOBIN 27.6 pg (27.0-31.0); MEAN CORPUSCULAR HGB CONC 31.9 g/dL (32.0-36.0); MEAN CORPUSCULAR VOLUME 86.4 fL (80.0-94.0); MEAN PLATELET VOLUME 9.9 fL (7.4-11.4); MONOCYTES # (AUTO) 0.3 10^3/uL (0.0-1.0); MONOCYTES % (AUTO) 9.8 %; NEUTROPHILS # (AUTO) 2.4 10^3/uL (1.5-6.6); NEUTROPHILS % (AUTO) 71.3 %; PLT - PLATELET COUNT 209 10^3/uL (130-450); RED BLOOD COUNT 3.15 10^6/uL (4.70-6.10); RED CELL DISTRIBUTION WIDTH 18.1 % (12.0-15.0); WHITE BLOOD COUNT 3.3 x10^3/uL (4.8-10.8)
== END 2018-10-18 23:59 | disposition home or self-care (01) ==
LOC: LAB.R 07:15
DX: D63.1 Anemia in chronic kidney disease (principal); I50.9 Heart failure, unspecified
CPT/HCPCS: 85025; 85651; 86140

== ENCOUNTER 2018-10-23 07:00 | Outpatient (CLI) | payer MEDICARE ==
[2018-10-23 10:00] LABS: BASOPHILS % (AUTO) 0.3 %; EOSINOPHILS # (AUTO) 0.1 10^3/uL (0.0-0.7); EOSINOPHILS % (AUTO) 2.6 %; HGB - HEMOGLOBIN 11.3 g/dL (14.0-18.0); LYMPHOCYTES # (AUTO) 0.9 10^3/uL (1.5-3.5); LYMPHOCYTES % (AUTO) 25.2 %; MEAN CORPUSCULAR HEMOGLOBIN 27.2 pg (27.0-31.0); MEAN CORPUSCULAR HGB CONC 31.1 g/dL (32.0-36.0); MEAN CORPUSCULAR VOLUME 87.5 fL (80.0-94.0); MEAN PLATELET VOLUME 7.8 fL (7.4-11.4); MONOCYTES # (AUTO) 0.3 10^3/uL (0.0-1.0); MONOCYTES % (AUTO) 8.3 %; NEUTROPHILS # (AUTO) 2.2 10^3/uL (1.5-6.6); NEUTROPHILS % (AUTO) 63.6 %; PLT - PLATELET COUNT 194 10^3/uL (130-450); RED BLOOD COUNT 4.13 10^6/uL (4.70-6.10); RED CELL DISTRIBUTION WIDTH 19.1 % (12.0-15.0); WHITE BLOOD COUNT 3.4 x10^3/uL (4.8-10.8)
== END 2018-10-23 07:01 | disposition home or self-care (01) ==
LOC: LAB 07:00
DX: T84.621D Infection and inflammatory reaction due to internal fixation device of left femur, subsequent encounter (principal)
CPT/HCPCS: 85025; 85651; 86140

== ENCOUNTER 2018-10-30 08:00 | Outpatient (CLI) | payer MEDICARE ==
[2018-10-30 11:24] LABS: BASOPHILS % (AUTO) 0.4 %; EOSINOPHILS # (AUTO) 0.1 10^3/uL (0.0-0.7); EOSINOPHILS % (AUTO) 3.2 %; HGB - HEMOGLOBIN 11.4 g/dL (14.0-18.0); LYMPHOCYTES # (AUTO) 0.7 10^3/uL (1.5-3.5); LYMPHOCYTES % (AUTO) 14.6 %; MEAN CORPUSCULAR HEMOGLOBIN 26.9 pg (27.0-31.0); MEAN CORPUSCULAR HGB CONC 31.8 g/dL (32.0-36.0); MEAN CORPUSCULAR VOLUME 84.6 fL (80.0-94.0); MEAN PLATELET VOLUME 7.7 fL (7.4-11.4); MONOCYTES # (AUTO) 0.2 10^3/uL (0.0-1.0); NEUTROPHILS # (AUTO) 3.6 10^3/uL (1.5-6.6); NEUTROPHILS % (AUTO) 76.8 %; PLT - PLATELET COUNT 221 10^3/uL (130-450); RED BLOOD COUNT 4.23 10^6/uL (4.70-6.10); RED CELL DISTRIBUTION WIDTH 18.2 % (12.0-15.0); WHITE BLOOD COUNT 4.7 x10^3/uL (4.8-10.8)
== END 2018-10-30 23:59 | disposition home or self-care (01) ==
LOC: LAB.R 08:00
DX: E78.5 Hyperlipidemia, unspecified (principal); D63.1 Anemia in chronic kidney disease; N18.6 End stage renal disease
CPT/HCPCS: 85025; 85651; 86140

== ENCOUNTER 2019-01-01 03:36 | Outpatient (CLI) | payer MEDICARE | END 2019-01-01 03:37 | disposition short-term general hospital (02) | LOC: EMS 03:36 | PROVIDERS: ATTEND Surgery | DX: R68.84 Jaw pain (principal); R06.02 Shortness of breath; H92.02 Otalgia, left ear | CPT/HCPCS: A0425; A0427 ==

== ENCOUNTER 2019-02-28 08:00 | Outpatient (CLI) | payer MEDICARE, MEDICAID ==
[2019-02-28 19:20] LABS: ALBUMIN 3.5 g/dL (3.2-5.5); ALKALINE PHOSPHATASE 54 IU/L (42-121); ALT ALANINE AMINOTRANSFERASE < 10 IU/L (10-60); AST ASPARTATE AMINOTRANSFERASE 12 IU/L (10-42); BILIRUBIN,TOTAL 0.6 mg/dL (0.2-1.0); TOTAL PROTEIN 7.2 g/dL (6.7-8.2)
[2019-02-28 19:21] LABS: CHOL/HDL RATIO 3.8 (<5.0); CHOLESTEROL 96 mg/dL; HDL CHOLESTEROL 25 mg/dL; LDL CHOLESTEROL,CALCULATED 45 mg/dL; LDL/HDL RATIO 1.8 (<3.6); VLDL CHOLESTEROL 26 mg/dL
[2019-02-28 19:25] LABS: BILIRUBIN,DIRECT < 0.1 mg/dL (0.1-0.5)
== END 2019-02-28 23:59 | disposition home or self-care (01) ==
LOC: LAB.N 08:00
PROVIDERS: ATTEND Physician Assistant
DX: I25.10 Atherosclerotic heart disease of native coronary artery without angina pectoris (principal)
CPT/HCPCS: 36415; 80061; 80076; 83721

== ENCOUNTER 2019-07-25 12:58 | Outpatient (CLI) | payer MEDICARE, MEDICAID ==
--- NOTE | 2019-07-25 14:25 | Ultrasound Report ---
Reason: RT INGUINAL HERNIA Procedure Date: 07/25/2019 Accession Number: [id number] / [id number] Procedure: US - Pelvic Limited or F/U CPT Code: FULL RESULT: EXAM: Limited abdominal/pelvic ultrasound EXAM DATE: 07/25/2019 01:51 PM. CLINICAL HISTORY: Right inguinal hernia. COMPARISON: None. TECHNIQUE: Real-time scanning was performed of the right lower quadrant with static images obtained. FINDINGS: There is a wide aperture incarcerated right inguinal hernia that can be reduced. There is no pain with compression. Intra-hernial intestine is noted. No evidence of strangulation. The diameter of the aperture is 3.1 cm diameter. It is unclear whether or not this is a direct or indirect hernia. Other: None. IMPRESSION: There is an incarcerated wide aperture right inguinal hernia that can be reduced. No evidence of bowel obstruction. [facility]
== END 2019-07-25 12:59 | disposition home or self-care (01) ==
LOC: DI 12:58
PROVIDERS: ATTEND Physician Assistant Medical
DX: K40.30 Unilateral inguinal hernia, with obstruction, without gangrene, not specified as recurrent (principal)
CPT/HCPCS: 76857

== ENCOUNTER 2019-10-15 14:35 | Outpatient (CLI) | payer MEDICARE, MEDICAID ==
[2019-10-15 18:45] LABS: BASOPHILS % (AUTO) 0.3 %; EOSINOPHILS # (AUTO) 0.2 10^3/uL (0.0-0.7); EOSINOPHILS % (AUTO) 4.7 %; HGB - HEMOGLOBIN 9.2 g/dL (14.0-18.0); LYMPHOCYTES # (AUTO) 0.4 10^3/uL (1.5-3.5); MEAN CORPUSCULAR HEMOGLOBIN 27.5 pg (27.0-31.0); MEAN CORPUSCULAR HGB CONC 28.3 g/dL (32.0-36.0); MEAN PLATELET VOLUME 9.7 fL (7.4-11.4); MONOCYTES # (AUTO) 0.3 10^3/uL (0.0-1.0); MONOCYTES % (AUTO) 8.2 %; NEUTROPHILS # (AUTO) 2.9 10^3/uL (1.5-6.6); NEUTROPHILS % (AUTO) 76.5 %; PLT - PLATELET COUNT 156 10^3/uL (130-450); RED BLOOD COUNT 3.35 10^6/uL (4.70-6.10); RED CELL DISTRIBUTION WIDTH 17.5 % (12.0-15.0); WHITE BLOOD COUNT 3.8 x10^3/uL (4.8-10.8)
[2019-10-15 19:03] LABS: ALBUMIN 3.4 g/dL (3.2-5.5); ALBUMIN/GLOBULIN RATIO 0.9 (1.0-2.2); ALKALINE PHOSPHATASE 65 IU/L (42-121); ALT ALANINE AMINOTRANSFERASE < 10 IU/L (10-60); AST ASPARTATE AMINOTRANSFERASE < 10 IU/L (10-42); BILIRUBIN,TOTAL 0.6 mg/dL (0.2-1.0); BUN - BLOOD UREA NITROGEN 19 mg/dL (6-20); CALCIUM 8.8 mg/dL (8.5-10.3); CARBON DIOXIDE - CO2 29 mmol/L (21-32); CHLORIDE 100 mmol/L (101-111); CHOL/HDL RATIO 2.9 (<5.0); CHOLESTEROL 95 mg/dL; GFR - MDRD 15 (>89); GLUCOSE 77 mg/dL (70-100); HDL CHOLESTEROL 33 mg/dL; LDL CHOLESTEROL,CALCULATED 45 mg/dL; LDL/HDL RATIO 1.4 (<3.6); SODIUM 139 mmol/L (135-145); TOTAL PROTEIN 7.1 g/dL (6.7-8.2); VLDL CHOLESTEROL 17 mg/dL
[2019-10-15 19:35] LABS: PLATELET ESTIMATE, MANUAL NORMAL (130-450,000) (NORMAL); PLATELET MORPHOLOGY NORMAL APPEARANCE (NORMAL)
== END 2019-10-15 23:59 | disposition home or self-care (01) ==
LOC: LAB.N 14:35
PROVIDERS: ATTEND Physician Assistant Medical
DX: I10 Essential (primary) hypertension (principal); E78.5 Hyperlipidemia, unspecified
CPT/HCPCS: 36415; 80053; 80061; 83721; 85025

== ENCOUNTER 2019-11-12 14:38 | Outpatient (CLI) | payer MEDICARE, MEDICAID ==
--- NOTE | 2019-11-13 09:43 | XRAY Report ---
Reason: CHF/cough Procedure Date: 11/12/2019 Accession Number: [id number] / [id number] Procedure: XRN - Chest 2 View X-Ray CPT Code: 11809 Final Report FULL RESULT: EXAM: CHEST RADIOGRAPHY EXAM DATE: 11/12/2019 02:55 PM. CLINICAL HISTORY: CHF/cough. COMPARISON: XR CHEST 1 VIEWS 07/26/2008 3:52 PM. TECHNIQUE: 2 views. FINDINGS: Lungs/Pleura: Pulmonary vascularity is increased with cephalization of vessels. Bibasilar atelectasis. Small bilateral effusions. Left lower lateral pleural thickening. Mediastinum: Cardiomegaly ectatic calcified aorta Other: None. IMPRESSION: 1. Cardiomegaly, CHF. 2. Bibasilar atelectasis. Small bilateral effusions [facility]
== END 2019-11-12 14:39 | disposition home or self-care (01) ==
LOC: DI.N 14:38
PROVIDERS: ATTEND Physician Assistant Medical
DX: I50.9 Heart failure, unspecified (principal); I51.7 Cardiomegaly; J98.11 Atelectasis; J90 Pleural effusion, not elsewhere classified
CPT/HCPCS: 36415; 71046; 83880

== ENCOUNTER 2019-11-12 15:03 | Outpatient (CLI) | payer MEDICAID, MEDICARE | END 2019-11-12 23:59 | disposition home or self-care (01) | LOC: LAB.N 15:03 | PROVIDERS: ATTEND Physician Assistant Medical | DX: I50.9 Heart failure, unspecified (principal) | CPT/HCPCS: 36415; 83880 ==

== ENCOUNTER 2020-11-04 10:37 | Outpatient (CLI) | payer MEDICARE, OTHER, MEDICAID | END 2020-11-04 10:38 | disposition short-term general hospital (02) | LOC: EMS 10:37 | PROVIDERS: ATTEND Surgery | DX: R06.02 Shortness of breath (principal); R53.83 Other fatigue; R53.1 Weakness; I95.9 Hypotension, unspecified | CPT/HCPCS: A0425; A0427 ==

== ENCOUNTER 2021-01-03 15:22 | Outpatient (CLI) | payer MEDICARE, MEDICAID | END 2021-01-03 15:23 | disposition critical access hospital (66) | LOC: EMS 15:22 | PROVIDERS: ATTEND Emergency Medicine | DX: I46.9 Cardiac arrest, cause unspecified (principal) | CPT/HCPCS: A0425; A0433 ==

== ENCOUNTER 2021-01-03 15:40 | Emergency (ER) | payer MEDICARE, MEDICAID ==
[2021-01-03] MEDS ORDERED: EPINEPHrine ABBOJECT 1 MG/10 ML SYRINGE IVP ONE (15:41)
--- NOTE | 2021-01-03 15:46 | ED Physician Documentation ---
History of Present Illness - Stated complaint Stated Complaint: ROSC - History obtained from History obtained from: EMS - History of Present Illness Timing: Today - Additonal information Additional information: 65-year-old male with a history of hypertension, diabetes, TIA/stroke, cardiovascular disease with stents placed at the [facility] in September 2020. He had dialysis today and afterwards went on the bus to be transported back home when he became unresponsive. EMS states that he was initially in what appeared to be an agonal rhythm, but had 2 episodes of what appeared to be ventricular tachycardia, therefore amiodarone was given as well as cardioversion x2. He was also given bicarbonate drips. Went into PEA. CPR was continued, epinephrine was given several times. The patient was intubated. Estimated total downtime without a pulse was around 15 minutes per EMS. They achieved a return of spontaneous circulation and brought the patient here. No other history is available at this time Review of Systems Unable to obtain: Unresponsive, Intubated PD PAST MEDICAL HISTORY - Past Medical History Past Medical History: Yes Cardiovascular: Hypertension, High cholesterol, Coronary artery disease, [place] Respiratory: None Neuro: CVA, TIA Endocrine/Autoimmune: Type 2 diabetes GI: GERD, GI bleed, Hepatitis, Other : Dialysis HEENT: Other Psych: None Musculoskeletal: Osteoarthritis, Rheumatoid arthritis Derm: Herpes zoster - Past Surgical History Past Surgical History: Yes Ortho: Hip replacement - Present Medications Home Medications: Ambulatory Orders Medication Instructions Recorded Confirmed Metoprolol Succinate 50 mg PO DAILY 04/12/17 03/24/18 Rosuvastatin Calcium 10 mg PO DAILY 04/12/17 03/24/18 Terazosin HCl 10 mg PO DAILY 04/12/17 03/24/18 Aspirin Chewable [[place] 81 mg PO DAILY 07/24/17 03/24/18 Aspirin] Pantoprazole [Protonix] 40 mg PO DAILY 07/24/17 03/24/18 Sevelamer Carbonate [Renvela] 800 mg PO BID 07/24/17 03/24/18 Fluticasone [Flonase] 2 sprays MAHNAZ BID 11/16/17 03/24/18 amLODIPine [Norvasc] 5 mg PO DAILY 11/16/17 03/24/18 Cholecalciferol (Vitamin D3) 2,000 unit PO DAILY 03/23/18 03/24/18 [Vitamin D] Diclofen Sod/Kinesiology Tape 1 each TP BID 03/23/18 03/24/18 [Diclo Gel 1%-Xrylix Sheet Kit] Pramipexole [Mirapex] 0.25 mg PO HS 03/23/18 03/24/18 - Allergies Allergies/Adverse Reactions: Allergies Allergy/AdvReac Type Severity Reaction Status Date / Time lisinopril AdvReac Cough Verified 03/23/18 15:22 - Social History Does the pt smoke?: Yes Smoking Status: Current every day smoker Does the pt drink ETOH?: No Does the pt have substance abuse?: No - Immunizations Immunizations are current?: Yes - POLST Patient has POLST: No PD ED PE NORMAL - Vitals Vital signs reviewed: Yes - General General: Other (pale, cachectic, Pupils fixed and dilated. Cool skin) - Neck Neck: Supple, no meningeal sign - Cardiac Cardiac: RRR - Respiratory Respiratory: No respiratory distress, Clear bilaterally - Abdomen Abdomen: Soft, Non tender, Non distended - Derm Derm: Other (pale, cool) - Extremities Extremities: No edema - Neuro Neuro: Other (unresponsive) Results - Vitals Vitals: Vital Signs - 24 hr 01/03/21 01/03/21 01/03/21 15:58 16:00 16:06 Heart Rate 75 45 L 55 L Respiratory 30 H 23 Rate Blood Pressure 95/34 L 42/25 L O2 Saturation 73 L 01/03/21 01/03/21 16:21 16:30 Heart Rate 44 L 0 L Respiratory 0 L Rate Blood Pressure 101/62 0/0 L O2 Saturation 0 L Oxygen O2 Source Mechanical ventilator - EKG (time done) 1542 Rate: Rate (enter#) (94) Rhythm: NSR [place]: Posterior hemiblock (LPFB) Intervals: RBBB - Labs Labs: Laboratory Tests 01/03/21 01/03/21 01/03/21 15:48 15:48 15:48 WBC 9.4 RBC 3.82 L Hgb 9.9 L Hct 36.6 L MCV 95.8 H MCH 25.9 L MCHC 27.0 L RDW 21.9 H Plt Count 153 MPV 9.0 Neut # (Auto) 6.6 Lymph # (Auto) 2.2 [place] # (Auto) 0.3 Eos # (Auto) 0.1 Baso # (Auto) 0.0 Absolute Nucleated RBC 0.18 Band Neuts % (Manual) Not Reportable Abnorm Lymph % (Manual) Not Reportable Nucleated RBC % 1.9 Neutrophils # (Manual) Not Reportable Lymphocytes # (Manual) Not Reportable Monocytes # (Manual) Not Reportable Eosinophils # (Manual) Not Reportable Basophils # (Manual) Not Reportable Differential Comment MANUA Manual Slide Review Indicated Platelet Estimate NORMAL (130-450,000) Platelet Morphology NORMAL APPEARANCE RBC Morph Micro Appear 1+ POLYCHROMASIA Sodium 140 Potassium 3.0 L Chloride 100 L Carbon Dioxide 23 Anion Gap 17.0 H BUN 15 Creatinine 3.2 H Estimated GFR (MDRD) 20 L Glucose 148 H Calcium 9.6 Phosphorus 4.2 Magnesium 1.9 Total Bilirubin 0.6 AST 33 ALT 26 Alkaline Phosphatase 118 Troponin I High Sens 321.0 H* Total Protein 6.6 L Albumin 2.6 L Globulin 4.0 Albumin/Globulin Ratio 0.7 L Lipase 20 L - Rads (name of study) cxr Radiology: Prelim report reviewed, EMP read contemporaneously, See rad report (IMPRESSION: 1. Lines and tubes in satisfactory position. 2. Moderate right pleural effusion. Right basilar atelectasis. ) Procedures - Central Line Central Line Preparation: Unable to obtain consent, Sterile prep and drape Central line location: Right Femoral Central line type: Triple lumen Central line aftercare: Secured, No complications PD MEDICAL DECISION MAKING - ED course Complexity details: reviewed results, re-evaluated patient, considered differential, d/w family ED course: 65-year-old male with a longstanding history of cardiac disease and chronic kidney disease, now on dialysis. Had a cardiac arrest today out of hospital. Return of spontaneous circulation with EMS after several rounds of epinephrine, amiodarone and sodium bicarbonate. Patient did lose pulses again in the emergency department and CPR was restarted. Regained pulses with epinephrine. Started on an epi drip. A right femoral central venous catheter was placed. The family arrived to the emergency department and states that he is a DNR. He would not want CPR and resuscitative efforts. At this point the patient began to become bradycardic on the epinephrine drip, lost pulses again and was cardiac standstill on bedside ultrasound. Patient was in PEA at that point. Patient then went into asystole. Time of was 1635. - Critical Care Time(min): 30 Time Includes: Direct patient care, Family consult for tx dec Data interpretation: See progress note Procedures included in critical care time: See progress note Procedures excluded from critical care time: Central IV, EKG, See progress note Departure - Departure Disposition: 20 Clinical Impression: Cardiac arrest
[2021-01-03] MEDS ORDERED: SODIUM CHLORIDE 0.9% 1,000 ML IV STA ×2 (15:48)
[2021-01-03 15:55] LABS: BASOPHILS % (AUTO) 0.2 %; EOSINOPHILS # (AUTO) 0.1 10^3/uL (0.0-0.7); EOSINOPHILS % (AUTO) 1.1 %; HCT - HEMATOCRIT 36.6 % (42.0-52.0); HGB - HEMOGLOBIN 9.9 g/dL (14.0-18.0); LYMPHOCYTES # (AUTO) 2.2 10^3/uL (1.5-3.5); LYMPHOCYTES % (AUTO) 23.4 %; MEAN CORPUSCULAR HEMOGLOBIN 25.9 pg (27.0-31.0); MEAN CORPUSCULAR VOLUME 95.8 fL (80.0-94.0); MONOCYTES # (AUTO) 0.3 10^3/uL (0.0-1.0); MONOCYTES % (AUTO) 3.6 %; NEUTROPHILS # (AUTO) 6.6 10^3/uL (1.5-6.6); NEUTROPHILS % (AUTO) 69.7 %; NRBC ABSOLUTE COUNT (AUTO) 0.18 x10^3/uL; NUCLEATED RED BLOOD CELLS AUTO 1.9 /100WBC; PLT - PLATELET COUNT 153 10^3/uL (130-450); RED BLOOD COUNT 3.82 10^6/uL (4.70-6.10); RED CELL DISTRIBUTION WIDTH 21.9 % (12.0-15.0); WHITE BLOOD COUNT 9.4 x10^3/uL (4.8-10.8)
[2021-01-03 15:58] LABS: SLIDE REVIEW? Indicated
[2021-01-03] MEDS ORDERED: DEXTROSE 50% ABBOJECT 25 GM/50 ML SYRINGE IVP STA (15:59)
[2021-01-03] MEDS ORDERED: EPINEPHrine 4 MG in DEXTROSE 5% 246 ML IV STA (16:07)
[2021-01-03] MEDS ORDERED: EPINEPHrine 1 MG/ML AMP IVP STA (16:12)
[2021-01-03 16:13] LABS: ALBUMIN 2.6 g/dL (3.2-5.5); ALBUMIN/GLOBULIN RATIO 0.7 (1.0-2.2); BILIRUBIN,TOTAL 0.6 mg/dL (0.2-1.0); CALCIUM 9.6 mg/dL (8.5-10.3); CREATININE 3.2 mg/dL (0.6-1.2); MAGNESIUM 1.9 mg/dL (1.7-2.8); PHOSPHORUS 4.2 mg/dL (2.5-4.6); TOTAL PROTEIN 6.6 g/dL (6.7-8.2)
[2021-01-03 16:21] LABS: DIFFERENTIAL COMMENT MANUA; PLATELET ESTIMATE, MANUAL NORMAL (130-450,000) (NORMAL); PLATELET MORPHOLOGY NORMAL APPEARANCE (NORMAL)
--- NOTE | 2021-01-03 16:22 | XRAY Report ---
PROCEDURE: Chest 1 View X-Ray INDICATIONS: s/p intubation and CPR TECHNIQUE: One view of the chest was acquired. COMPARISON: ET tube and dialysis catheter in satisfactory position. FINDINGS: Surgical changes and devices: None. Lungs and pleura: Moderate right pleural effusion. Right basilar atelectasis. Mediastinum: Mediastinal contours appear normal. Heart size is normal. Bones and chest wall: No suspicious bony lesions. Overlying soft tissues appear unremarkable. IMPRESSION: 1. Lines and tubes in satisfactory position. 2. Moderate right pleural effusion. Right basilar atelectasis. Reviewed by: Hayes Rodriguez MD on 01/03/2021 3:21 PM [facility] Approved by: Hayes Rodriguez MD on 01/03/2021 3:21 PM [facility] Station ID: [id number]
[2021-01-03 17:15] VITALS: BP 0/0
== END 2021-01-03 16:35 | disposition expired ==
LOC: EDUNIT# → ED 15:40
DX: I46.9 Cardiac arrest, cause unspecified (principal); Z66 Do not resuscitate; I45.2 Bifascicular block; I48.91 Unspecified atrial fibrillation; J90 Pleural effusion, not elsewhere classified; I12.9 Hypertensive chronic kidney disease with stage 1 through stage 4 chronic kidney disease, or unspecified chronic kidney disease; E11.22 Type 2 diabetes mellitus with diabetic chronic kidney disease; N18.9 Chronic kidney disease, unspecified; Z99.2 Dependence on renal dialysis; I25.10 Atherosclerotic heart disease of native coronary artery without angina pectoris; Z95.5 Presence of coronary angioplasty implant and graft; F17.200 Nicotine dependence, unspecified, uncomplicated
CPT/HCPCS: 36415; 36556; 51702; 80053; 82803; 83690; 83735; 84100; 84484; 85025; 93005; 94002; 94770; 99291